=== PATIENT | female | born 1975 | race Caucasian/White ===

== ENCOUNTER → 2017-12-24 | Outpatient (CLI) | payer OTHER ==
[~2017-12-24] MED LIST: CHOL10005 PO; ETAN50DI5 SQ; FOLI0.4T56 PO; IODI1GRA2 MC; LEVO200T44 PO; OMEG-36 PO; PRAS1TAB4 PO; PREN-67 PO; VITA1CAP46 PO
== END ==
LOC: LAB 15:45
PROVIDERS: ATTEND Obstetrics & Gynecology
DX: Z11.3 Encounter for screening for infections with a predominantly sexual mode of transmission (principal)
CPT/HCPCS: 87491; 87591